=== PATIENT | female | born 1990 | race Caucasian/White ===

== ENCOUNTER 2022-09-18 11:18 | Emergency (ER) | payer BC ==
[2022-09-18 12:01] LABS: #Eosinphils 0.1 10x3/uL (0.0-0.5); #Monocytes 0.9 10x3/uL (0.0-1.1); #Neutrophils 8.5 10x3/uL (1.5-8.4); %Basophils 0.2 % (0.0-2.0); %Eosinophils 0.8 % (0.0-6.0); %Lymphocytes 18.7 % (18.0-47.0); %Monocytes 7.3 % (0.0-10.0); %Neutrophils 72.7 % (40.0-75.0); Hemoglobin 12.9 g/dL (12.0-15.5); Mean Corpuscular HGB CONC 34.9 g/dL (32.0-36.0); Mean Corpuscular Hemoglobin 30.4 pg (27.0-33.0); Mean Corpuscular Volume 87.3 fl (81.6-98.3); Mean Platelet Volume 9.7 fl (7.4-10.4); Platelet Count 321 10x3/uL (150-450); RBC Distribution Width 12.2 % (11.5-14.5); Red Blood Cell (RBC) Count 4.24 10x6/uL (3.90-5.03); White Blood Cell (WBC) Count 11.7 10x3/uL (3.5-10.5)
[2022-09-18 12:22] LABS: ALT (SGPT) 11 U/L (8-55); AST (SGOT) 20 U/L (5-34); Albumin 4.1 g/dL (3.5-5.0); Alkaline Phosphatase 49 U/L (40-110); Anion Gap 13 mmol/L (10-20); BUN (Urea Nitrogen) 14 mg/dL (7.0-18.7); Bilirubin, Total 0.4 mg/dL (0.2-1.2); Calc. Creatinine Clearance 0 mL/min (70-130); Calcium 9.4 mg/dL (7.8-10.44); Carbon Dioxide 24 mmol/L (22-29); Chloride 103 mmol/L (98-107); Estimated GFR 118; Globulin 2.7 g/dL (2.4-3.5); Glucose 90 mg/dL (70-105); Potassium 3.8 mmol/L (3.5-5.1); Protein, Total 6.8 g/dL (6.0-8.3); Sodium 136 mmol/L (136-145)
[2022-09-18 14:35] LABS: Bilirubin Neg (Negative); Blood, Urine 250 (Negative); Clarity Sl. Cloudy (Clear); Glucose, Urine (Dipstick) Normal (Negative); Ketone, Urine Negative (Negative); Leukocyte Negative (Negative); Nitrite Negative (Negative); Protein, Urine (Dipstick) 15 mg/dl (Neg-Trace); Urobilinogen Normal mg/dL (Less than 2)
[2022-09-18 14:48] LABS: Bacteria/HPF 2+ HPF (None Seen); WBC/HPF 0-3 HPF (0-3)
[2022-09-18 15:03] LABS: SARS-CoV-2 NAA Rapid Test Not Detected (NotDetected)
== END 2022-09-18 15:32 | disposition home or self-care (01) ==
LOC: CSHERS 11:18
DX: O23.91 Unspecified genitourinary tract infection in pregnancy, first trimester (principal); R82.71 Bacteriuria; Z3A.08 8 weeks gestation of pregnancy
CPT/HCPCS: 36415; 76856; 80053; 81003; 81015; 84702; 85025; 85379; U0002

== ENCOUNTER 2023-03-24 13:44 | Day surgery (SDC) | payer BC ==
[2023-03-24 14:07] VITALS: BMI 27.4
[2023-03-24] MEDS ORDERED: hydrALAZINE 20 MG/ML VIAL SLOW IVP PRN (15:03)
== END 2023-03-24 14:54 | disposition home or self-care (01) ==
LOC: CSHLD/OP 13:44
PROVIDERS: ATTEND Obstetrics & Gynecology
DX: O99.893 Other specified diseases and conditions complicating puerperium (principal); R07.82 Intercostal pain; Z79.899 Other long term (current) drug therapy; Z3A.34 34 weeks gestation of pregnancy
CPT/HCPCS: 99282

== ENCOUNTER 2023-06-03 14:03 | Outpatient (CLI) | payer BC ==
[2023-06-03 14:59] LABS: BHCG - Serum Negative (NEGATIVE); Pregs Control Background? CLEAR/WHITE (CLR/WHITE); Pregs Control Bar Appear? YES (CONTROL BAR)
== END 2023-06-03 14:04 | disposition home or self-care (01) ==
LOC: CSHLAB 14:03
PROVIDERS: ATTEND Otolaryngology Plastic Surgery within the Head & Neck
DX: Z01.812 Encounter for preprocedural laboratory examination (principal); J38.6 Stenosis of larynx; R06.1 Stridor
CPT/HCPCS: 84703; 85014

== ENCOUNTER 2023-06-08 09:45 | Day surgery (SDC) | payer BC ==
[2023-06-03 14:32] VITALS: BMI 23.0
[2023-06-08] MEDS ORDERED: Ondansetron PF 4 MG/2 ML Vial ONE (10:51)
[2023-06-08] MEDS ORDERED: fentaNYL 50 mcg/mL 1 mL Vial ONE ×2 (10:51→12:55)
[2023-06-08] MEDS ORDERED: PROPOFOL 60 ML ONE (10:51)
[2023-06-08] MEDS ORDERED: Dexamethasone 20 MG/5 ML VIAL ONE (10:51)
[2023-06-08] MEDS ORDERED: Midazolam HCl 2 mg/2 ml Vial ONE (10:51)
[2023-06-08] MEDS ORDERED: Lidocaine 1% PF 5 ML VIAL ONE (11:09)
[2023-06-08] MEDS ORDERED: EPINEPHrine 1 MG/ML AMP ONE (12:06)
[2023-06-08] MEDS ORDERED: Bupivacaine HCl 0.5%/Epinephrine 1:200,000/PF 30 ml Vial ONE (12:06)
[2023-06-08] MEDS ORDERED: Hydrocodone-Acetamin 15 ML UDCUP ONE (13:37)
== END 2023-06-08 14:25 | disposition home or self-care (01) ==
LOC: CSHSDC 09:45
PROVIDERS: ATTEND Otolaryngology Plastic Surgery within the Head & Neck
PROC: 0C7S8ZZ Dilation of Larynx, Via Natural or Artificial Opening Endoscopic (ICD-10-PCS; principal; 2023-06-08)
PROC: 0CBS8ZZ Excision of Larynx, Via Natural or Artificial Opening Endoscopic (ICD-10-PCS; principal; 2023-06-08)
PROC: 3E0F83Z Introduction of Anti-inflammatory into Respiratory Tract, Via Natural or Artificial Opening Endoscopic (ICD-10-PCS; principal; 2023-06-08)
DX: J38.6 Stenosis of larynx (principal); J30.9 Allergic rhinitis, unspecified; Z79.899 Other long term (current) drug therapy
CPT/HCPCS: C1776; J0171; J1100; J2250; J2405; J2704; J3010

== ENCOUNTER 2025-09-23 17:56 | Inpatient (IN) | payer BC ==
[2025-09-23 18:31] VITALS: BMI 27.8
[2025-09-23] MEDS ORDERED: hydrALAZINE 20 MG/ML VIAL SLOW IVP PRN (18:52)
[2025-09-23] MEDS ORDERED: Carboprost 250 MCG/ML AMP IM PRN (20:35)
[2025-09-23] MEDS ORDERED: Diphenoxylate HCl/Atropine Tablet PO PRN ×2 (20:35)
[2025-09-23] MEDS ORDERED: Ondansetron PF 4 MG/2 ML Vial IVP PRN (20:35)
[2025-09-23] MEDS ORDERED: Lidocaine 1% (PF) 30 ML VIAL SC PRN (20:35)
[2025-09-23] MEDS ORDERED: Methylergonovine 0.2 MG/ML VIAL IM PRN (20:35)
[2025-09-23] MEDS ORDERED: Acetaminophen 500 MG TAB PO PRN (20:35)
[2025-09-23] MEDS ORDERED: Tranexamic Acid 1,000 MG/10 ML VIAL IVP PRN (20:35)
[2025-09-23] MEDS ORDERED: Penicillin G Potassium 5 MILL.UNITS in Sodium Chloride 0.9% 100 ML IVPB SCH (20:45)
[2025-09-23] MEDS: Penicillin G Potassium 5 MILL.UNITS VIAL ONE (20:53)
[2025-09-23 21:14] LABS: Hematocrit 40.7 % (34.9-44.5); Hemoglobin 14.2 g/dL (12.0-15.5); Mean Corpuscular Hemoglobin 30.6 pg (27.0-33.0); Mean Corpuscular Volume 87.7 fL (81.6-98.3); Platelet Count 254 10x3/uL (150-450); Red Blood Cell (RBC) Count 4.64 10x6/uL (3.90-5.03); White Blood Cell (WBC) Count 12.27 10x3/uL (3.5-10.5)
[2025-09-23 21:55] LABS: Syphilis Antibody Index 0.11 S/CO (<1.00 Non-Reactive)
[2025-09-23 21:56] LABS: Hep B Surf Ag - L&D Non-Reactive S/CO (NonReactive)
[2025-09-23] MEDS: Oxytocin 30 units/NS 500 ML 500 ML IV SCH (23:01)
[2025-09-23] MEDS ORDERED: HYDROcodone/Acetaminophen 5/325 mg Tablet PO PRN (23:17)
[2025-09-23] MEDS ORDERED: Preparation H Ointment 28 GM TUBE PR PRN (23:17)
[2025-09-23] MEDS ORDERED: Bisacodyl 10 MG SUPP PR PRN (23:17)
[2025-09-23] MEDS ORDERED: Benzocaine-Menthol 82.5 ML CAN TOP PRN (23:17)
[2025-09-23] MEDS ORDERED: diphenhydrAMINE 25 MG CAP PO PRN (23:17)
[2025-09-23] MEDS ORDERED: Boostrix 0.5 ML (Tdap) VIAL (>/=7 yrs of age) IM ONE (23:17)
[2025-09-23] MEDS ORDERED: Lanolin Ointment 7 GM TUBE TOP PRN (23:17)
[2025-09-23] MEDS: Lidocaine 1% (PF) 30 ML VIAL ONE (23:31)
[2025-09-23] MEDS: Ibuprofen 800 MG TAB PO PRN (23:41)
[2025-09-24] MEDS ORDERED: Penicillin G 2.5 MILL.units 2.5 MILL.UNITS in Premix 1 BAG IVPB SCH (00:30)
[2025-09-24 05:15] LABS: Hematocrit 33.3 % (34.9-44.5); Hemoglobin 11.8 g/dL (12.0-15.5)
[2025-09-24] MEDS: Ibuprofen 800 MG TAB PO SCH (12:53)
[2025-09-24] MEDS: Ferrous Sulfate 325 MG TAB PO SCH (16:36)
[2025-09-25 07:53] VITALS: BP 112/76; TEMP 98.2
== END 2025-09-25 11:05 | disposition home or self-care (01) | DRG 807 ==
LOC: CSHLD/OP 17:56 → CSHLD 20:40 → CSHPP 09-24 00:15
PROVIDERS: ADMIT Obstetrics & Gynecology; ATTEND Obstetrics & Gynecology
PROC: 10E0XZZ Delivery of Products of Conception, External Approach (ICD-10-PCS; principal; 2025-09-23)
PROC: 0HQ9XZZ Repair Perineum Skin, External Approach (ICD-10-PCS; 2025-09-23)
PROC: 3E03329 Introduction of Other Anti-infective into Peripheral Vein, Percutaneous Approach (ICD-10-PCS; 2025-09-23)
DX: O99.824 Streptococcus B carrier state complicating childbirth (principal); Z37.0 Single live birth; Z3A.38 38 weeks gestation of pregnancy; O70.0 First degree perineal laceration during delivery
CPT/HCPCS: 36415; 85014; 85018; 85027; 86780; 86850; 86900; 86901; 87340; 99285; J2003; J2540; J2590